=== PATIENT | male | born 1995 | race Two or more races ===

== ENCOUNTER 2020-12-24 19:32 | Emergency (ER) | payer OTHER ==
[~2020-12-24] VITALS: Ht 175.3 cm; Wt 61.2 kg
[2020-12-24 19:48] VITALS: BP 124/80
--- NOTE | 2020-12-24 19:48 | NUR ---
[id number] WITH [employer] FOR OTB; FEELS "ANXIOUS", TAKES ZYPREXA FOR ANXIETY MD AT BEDSIDE FOR EVAL
== END 2020-12-24 19:55 | disposition home or self-care (01) ==
LOC: ER 19:33
DX: Z02.89 Encounter for other administrative examinations (principal)